=== PATIENT | female | born 1955 | race Caucasian/White ===

== ENCOUNTER 2018-01-31 12:27 | Emergency (ER) | payer BC, SELFPAY ==
--- NOTE | 2018-01-31 12:47 | DI.RAD.S_ITS ---
PROCEDURE: XR FOREARM RT 2V INDICATIONS: injury pain TECHNIQUE: 2 views of the forearm were acquired. COMPARISON: None. FINDINGS: Bones: There is a mildly displaced fracture of the distal ulnar diaphysis. No suspicious bony lesions. Soft tissues: No suspicious soft tissue calcifications or masses. IMPRESSION: Distal ulnar fracture. Dictated by: Lin Chan M.D. on 01/31/2018 at 13:06 Approved by: Lin Chan M.D. on 01/31/2018 at 13:06
[2018-01-31 12:52] VITALS: BP 91/59; PULSE 93; RESP 22; TEMP 36.7; O2SAT 99; BMI 22.8
--- NOTE | 2018-01-31 13:36 | ED.UPPEXIN ---
HPI - Extremity Injury (Upper) <Chyna Stevenson PA-C - Last Filed: 01/31/18 21:26> General Chief Complaint: Extremity Injury, Upper Stated Complaint: POSS BROKEN LEFT ARM Time Seen by Provider: 01/31/18 13:36 Source: patient Mode of arrival: ambulatory Limitations: no limitations History of Present Illness HPI narrative: This 62-year-old female, right handed, was dropping a very heavy buoy over the side of her boat, got her arm stuck between the line and the rail and hit her left forearm directly with the buoy. She denies any other injury. States that she heard a crack and had pain right away. She states that pain can radiate into the forearm if she moves her wrist or fingers, but she did not hit those areas and does not have pain there otherwise. She denies any pain in the shoulder or upper arm, or elsewhere in the upper extremity. She denies any weakness or paresthesia and states pain is keeping her from movement. Related Data Previous Rx's Medication Instructions Recorded tramadol 50 mg PO Q4-6H PRN #6 tab 01/31/18 Allergies Allergy/AdvReac Type Severity Reaction Status Date / Time codeine Allergy Verified 01/31/18 12:52 Review of Systems <Chyna Stevenson PA-C - Last Filed: 01/31/18 21:26> Review of Systems All systems reviewed & are unremarkable except as noted in HPI and below PFSH <Chyna Stevenson PA-C - Last Filed: 01/31/18 21:26> Comment: Denies tobacco use, +EtOH Exam <DIONNE Stone Last Filed: 01/31/18 21:26> Narrative Exam Narrative: GENERAL APPEARANCE: Patient sitting comfortably, in no distress. LUNGS: Clear to auscultation bilaterally. HEART: Rate and rhythm regular without murmur, normal S1 and S2, no S3 or S4. MUSCULOSKELETAL: Left forearm is held against the body in neutral position. There is no joint effusion. She is tender over the left medial forearm. No tenderness over the elbow or shoulder. No tenderness over the wrist joint, metacarpals, or fingers. She has tenderness with movement of the fingers on the medial side, is able to maintain strength against resistance in all miles in those fingers. DERMATOLOGIC: No ecchymoses, abrasions or skin tenting NEUROVASCULAR: Left upper extremity wrist pulses are intact, fingers are warm and pink, sensation is grossly intact Initial Vital Signs Initial Vital Signs: Vital Signs Temperature 98.0 F 01/31/18 12:52 Pulse Rate 93 H 01/31/18 12:52 Respiratory Rate 22 01/31/18 12:52 Blood Pressure 91/59 L 01/31/18 12:52 Pulse Oximetry 99 01/31/18 12:52 <Gustavo Horner MD - Last Filed: 02/01/18 07:40> Initial Vital Signs Initial Vital Signs: Vital Signs Temperature 98.0 F 01/31/18 12:52 Pulse Rate 93 H 01/31/18 12:52 Respiratory Rate 22 01/31/18 12:52 Blood Pressure 91/59 L 01/31/18 12:52 Pulse Oximetry 99 01/31/18 12:52 Course <Chyna Stevenson PA-C - Last Filed: 01/31/18 21:26> Additional Information: I reviewed films with Dr. Horner. He agrees that this is minimally displaced and dose not require intervention. Reinforced sugar tong (posterior) splint placed. Patient reported pain significantly improved once splinted, comfortable, fingers warm and pink with sensation grossly intact. Orders Ordered: Discontinued Medications Ibuprofen (Advil) 800 mg PO NOW ONE Stop: 01/31/18 13:51 Last Admin: 01/31/18 14:04 Dose: 800 mg Vital Signs - 8 hr 01/31/18 15:03 Pulse Rate 75 Respiratory Rate 16 Blood Pressure 121/71 H Pulse Oximetry 100 <Gustavo Horner MD - Last Filed: 02/01/18 07:40> Orders Ordered: Discontinued Medications Ibuprofen (Advil) 800 mg PO NOW ONE Stop: 01/31/18 13:51 Last Admin: 01/31/18 14:04 Dose: 800 mg Vital Signs - 8 hr 01/31/18 15:03 Pulse Rate 75 Respiratory Rate 16 Blood Pressure 121/71 H Pulse Oximetry 100 MDM - Extremity Injury (Upper) <Chyna Stevenson PA-C - Last Filed: 01/31/18 21:26> Imaging Data extremity: Radiologist's impression: View Report History [address] [address] XRay Report Signed Patient: RAHUL PICHARDO MR#: [id number] : 1955 Acct:[id number] Age/Sex: 62 / F Date of Service: 01/31/18 Loc: ED Accession Number: [id number] Procedure: XR forearm LT 2V Ordering Provider: Gustavo Horner M.D. PROCEDURE: XR FOREARM RT 2V INDICATIONS: injury pain TECHNIQUE: 2 views of the forearm were acquired. COMPARISON: None. FINDINGS: Bones: There is a mildly displaced fracture of the distal ulnar diaphysis. No suspicious bony lesions. Soft tissues: No suspicious soft tissue calcifications or masses. IMPRESSION: Distal ulnar fracture. Dictated by: Lin Chan M.D. on 01/31/2018 at 13:06 Approved by: Lin Chan M.D. on 01/31/2018 at 13:06 Discharge Plan Departure Patient Disposition: Home Clinical Impression: Fracture of ulnar shaft, closed Discharge Date/Time: 01/31/18 15:04 Interventions: ED Discharge Assessment Last Done: 01/31/18 15:03 Instructions: DI for Forearm Fracture Activity Restrictions/Additional Instructions: You can take ibuprofen 800 mg every 8 hr as needed for pain (this is the equivalent of prescription dose), and you can add Tylenol as needed. I have also given you a prescription for tramadol to add if needed especially at night. Please do not drive or do other activities were you need alertness while taking this as it could make you sleepy. Keep your arm in the splint and sling for comfort. You should return if you have any problems with the splint or new symptoms such as numbness or increasing pain or swelling, otherwise you should talk with your PCP at home 1st thing on Friday and let them know about her fracture at that you need a local orthopedics referral for follow-up next week. Please be sure to take the copy of the x-ray you have on disc Prescriptions: New tramadol 50 mg tablet 50 mg PO Q4-6H PRN (Reason: arm pain) Qty: 6 RF: 0 Referrals: Peggy Alcocer [Other] <Gustavo Horner MD - Last Filed: 02/01/18 07:40> Sign Out Provider Sign Out Attestation: The PA/[employer] CONSULTANT functioned independently for the care of this pt, I was available, but not asked to participate in care. I am unable to determine appropriateness of management without personally examining the pt.
--- NOTE | 2018-01-31 13:39 | ED_ITS ---
HPI - Extremity Injury (Upper) <Chyna Stevenson PA-C - Last Filed: 01/31/18 21:26> General Chief Complaint: Extremity Injury, Upper Stated Complaint: POSS BROKEN LEFT ARM Time Seen by Provider: 01/31/18 13:36 Source: patient Mode of arrival: ambulatory Limitations: no limitations History of Present Illness HPI narrative: This 62-year-old female, right handed, was dropping a very heavy buoy over the side of her boat, got her arm stuck between the line and the rail and hit her left forearm directly with the buoy. She denies any other injury. States that she heard a crack and had pain right away. She states that pain can radiate into the forearm if she moves her wrist or fingers, but she did not hit those areas and does not have pain there otherwise. She denies any pain in the shoulder or upper arm, or elsewhere in the upper extremity. She denies any weakness or paresthesia and states pain is keeping her from movement. Related Data Previous Rx's Medication Instructions Recorded tramadol 50 mg PO Q4-6H PRN #6 tab 01/31/18 Allergies Allergy/AdvReac Type Severity Reaction Status Date / Time codeine Allergy Verified 01/31/18 12:52 Review of Systems <Chyna Stevenson PA-C - Last Filed: 01/31/18 21:26> Review of Systems All systems reviewed & are unremarkable except as noted in HPI and below PFSH <Chyna Stevenson PA-C - Last Filed: 01/31/18 21:26> Comment: Denies tobacco use, +EtOH Exam <DIONNE Stone Last Filed: 01/31/18 21:26> Narrative Exam Narrative: GENERAL APPEARANCE: Patient sitting comfortably, in no distress. LUNGS: Clear to auscultation bilaterally. HEART: Rate and rhythm regular without murmur, normal S1 and S2, no S3 or S4. MUSCULOSKELETAL: Left forearm is held against the body in neutral position. There is no joint effusion. She is tender over the left medial forearm. No tenderness over the elbow or shoulder. No tenderness over the wrist joint, metacarpals, or fingers. She has tenderness with movement of the fingers on the medial side, is able to maintain strength against resistance in all miles in those fingers. DERMATOLOGIC: No ecchymoses, abrasions or skin tenting NEUROVASCULAR: Left upper extremity wrist pulses are intact, fingers are warm and pink, sensation is grossly intact Initial Vital Signs Initial Vital Signs: Vital Signs Temperature 98.0 F 01/31/18 12:52 Pulse Rate 93 H 01/31/18 12:52 Respiratory Rate 22 01/31/18 12:52 Blood Pressure 91/59 L 01/31/18 12:52 Pulse Oximetry 99 01/31/18 12:52 <Gustavo Horner MD - Last Filed: 02/01/18 07:40> Initial Vital Signs Initial Vital Signs: Vital Signs Temperature 98.0 F 01/31/18 12:52 Pulse Rate 93 H 01/31/18 12:52 Respiratory Rate 22 01/31/18 12:52 Blood Pressure 91/59 L 01/31/18 12:52 Pulse Oximetry 99 01/31/18 12:52 Course <Chyna Stevenson PA-C - Last Filed: 01/31/18 21:26> Additional Information: I reviewed films with Dr. Horner. He agrees that this is minimally displaced and dose not require intervention. Reinforced sugar tong (posterior) splint placed. Patient reported pain significantly improved once splinted, comfortable, fingers warm and pink with sensation grossly intact. Orders Ordered: Discontinued Medications Ibuprofen (Advil) 800 mg PO NOW ONE Stop: 01/31/18 13:51 Last Admin: 01/31/18 14:04 Dose: 800 mg Vital Signs - 8 hr 01/31/18 15:03 Pulse Rate 75 Respiratory Rate 16 Blood Pressure 121/71 H Pulse Oximetry 100 <Gustavo Horner MD - Last Filed: 02/01/18 07:40> Orders Ordered: Discontinued Medications Ibuprofen (Advil) 800 mg PO NOW ONE Stop: 01/31/18 13:51 Last Admin: 01/31/18 14:04 Dose: 800 mg Vital Signs - 8 hr 01/31/18 15:03 Pulse Rate 75 Respiratory Rate 16 Blood Pressure 121/71 H Pulse Oximetry 100 MDM - Extremity Injury (Upper) <Chyna Stevenson PA-C - Last Filed: 01/31/18 21:26> Imaging Data extremity: Radiologist's impression: View Report History [address] [address] XRay Report Signed Patient: RAHUL PICHARDO MR#: [id number] : 1955 Acct:[id number] Age/Sex: 62 / F Date of Service: 01/31/18 Loc: ED Accession Number: [id number] Procedure: XR forearm LT 2V Ordering Provider: Gustavo Horner M.D. PROCEDURE: XR FOREARM RT 2V INDICATIONS: injury pain TECHNIQUE: 2 views of the forearm were acquired. COMPARISON: None. FINDINGS: Bones: There is a mildly displaced fracture of the distal ulnar diaphysis. No suspicious bony lesions. Soft tissues: No suspicious soft tissue calcifications or masses. IMPRESSION: Distal ulnar fracture. Dictated by: Lin Chan M.D. on 01/31/2018 at 13:06 Approved by: Lin Chan M.D. on 01/31/2018 at 13:06 Discharge Plan Departure Patient Disposition: Home Clinical Impression: Fracture of ulnar shaft, closed Discharge Date/Time: 01/31/18 15:04 Interventions: ED Discharge Assessment Last Done: 01/31/18 15:03 Instructions: DI for Forearm Fracture Activity Restrictions/Additional Instructions: You can take ibuprofen 800 mg every 8 hr as needed for pain (this is the equivalent of prescription dose), and you can add Tylenol as needed. I have also given you a prescription for tramadol to add if needed especially at night. Please do not drive or do other activities were you need alertness while taking this as it could make you sleepy. Keep your arm in the splint and sling for comfort. You should return if you have any problems with the splint or new symptoms such as numbness or increasing pain or swelling, otherwise you should talk with your PCP at home 1st thing on Friday and let them know about her fracture at that you need a local orthopedics referral for follow-up next week. Please be sure to take the copy of the x-ray you have on disc Prescriptions: New tramadol 50 mg tablet 50 mg PO Q4-6H PRN (Reason: arm pain) Qty: 6 RF: 0 Referrals: Peggy Alcocer [Other] <Gustavo Horner MD - Last Filed: 02/01/18 07:40> Sign Out Provider Sign Out Attestation: The PA/NEWSAGENT functioned independently for the care of this pt, I was available, but not asked to participate in care. I am unable to determine appropriateness of management without personally examining the pt.
[2018-01-31] MEDS: IBUPROFEN 400 MG TABLET 800 MG PO (14:04)
[2018-01-31 15:03] VITALS: BP 121/71; PULSE 75; RESP 16; O2SAT 100
== END 2018-01-31 15:04 | disposition home or self-care (01) ==
PROVIDERS: Emergency Provider Internal Medicine
DX: S52.202A Unspecified fracture of shaft of left ulna, initial encounter for closed fracture (principal); W20.8XXA Other cause of strike by thrown, projected or falling object, initial encounter
CPT/HCPCS: 29105; 29240; 73090; 99282; 99283